=== PATIENT | female | born 1940 | race Caucasian/White ===

== ENCOUNTER 2022-01-02 08:59 | Observation (INO) ==
[2022-01-02] MEDS ORDERED: Iopamidol - 370 500 ML MLS IVP ONE (09:08)
[2022-01-02 09:30] LABS: Hematocrit 44.5 % (35.3-44.9); Hemoglobin 14.5 g/dL (11.5-15.4); Mean Corpuscular HGB Conc 32.6 g/dL (31.6-35.5); Mean Corpuscular Hemoglobin 27.7 pg (28.0-33.3); Mean Corpuscular Volume 85.1 fL (83.0-100.0); Mean Platelet Volume 10.1 fL (9.4-12.4); Platelet Count 277 K/mcL (140-400); Red Blood Count 5.23 M/mcL (3.82-4.97); Red Cell Distribution Width 13.2 % (11.5-14.5); White Blood Count 8.8 K/mcL (4.3-11.1)
[2022-01-02 09:37] LABS: Prothrombin Time 11.6 Seconds (9.4-12.1)
[2022-01-02 09:40] LABS: Activated Partial Thrombo Time 26.2 Seconds (26.0-36.0)
[2022-01-02 09:57] LABS: BUN/Creatinine Ratio 11 (6-26); Blood Urea Nitrogen 17 mg/dL (8-23); Calcium 10.1 mg/dL (8.6-10.3); Carbon Dioxide 28 mEq/L (23-29); Chloride 99 mEq/L (98-107); Ethanol < 10 mg/dL (Less than 10); Glucose 263 mg/dL (70-105); Osmolality,Calculated 291 (280-300); Potassium 3.6 mEq/L (3.5-5.1); Sodium 135 mEq/L (136-145); Troponin I 0.05 ng/mL (< 0.04); eGFR For African Americans 39 (> 60); eGFR For Non-African Americans 32 (> 60)
[2022-01-02] MEDS ORDERED: Naloxone 0.4 MG/ML INJ IVP PRN (11:00)
[2022-01-02] MEDS ORDERED: Aspirin 325 MG TABLET PO ONE (11:00)
[2022-01-02] MEDS ORDERED: Perflutren Lipid Microsphere 1.3 ML in 0.9 % Sodium Chloride 8.7 ML IVP PRN (11:03)
[2022-01-02] MEDS ORDERED: 0.9 % Sodium Chloride 1,000 ML IVC SCH (11:15)
[2022-01-02 11:50] LABS: Chol/HDL Ratio 2.9 (0-4.9); Cholesterol 164 mg/dL (< 200); HDL Cholesterol 57 mg/dL (40-59); LDL Cholesterol,Calculated 68 mg/dL (< 100); Triglycerides 195 mg/dL (< 150)
[2022-01-02 12:30] LABS: Estimated Average Glucose 266 mg/dl; Hemoglobin A1C 10.9 %
[2022-01-02] MEDS ORDERED: D5% in Water 1,000 ML IVC PRN (13:34)
[2022-01-02] MEDS ORDERED: *HR* Dextrose 50 % in Water (Syg) 50 ML SYRINGE IVP PRN (13:34)
[2022-01-02] MEDS ORDERED: Dextrose Gel 15 GM/37.5 ML TUBE PO PRN ×2 (13:34)
[2022-01-02] MEDS ORDERED: Ondansetron ODT 4 MG TAB.RAPDIS PO PRN (13:36)
[2022-01-02] MEDS ORDERED: *HR* OxyCODONE Immed Rel 5 MG TABLET PO PRN (13:36)
[2022-01-02] MEDS: Gabapentin 100 MG CAPSULE PO SCH ×2 (14:33→22:00)
[2022-01-02 15:58] LABS: Bilirubin,Urine Negative (Negative); Blood,Urine Small (Negative); Clarity,Urine Clear (Clear); Color,Urine Yellow (Yellow); Glucose,Urine (UA) >=1000 mg/dL (Normal); Ketones,Urine 10 mg/dL (Negative); Leukocyte Esterase,Urine Negative (Negative); Nitrite,Urine Negative (Negative); Protein,Urine 100 mg/dL (Neg-Trace); RBC,Urine 0-3 per hpf (0-3); Specific Gravity,Urine > 1.030 (1.010-1.025); Squamous Epithelial Cell,Urine Few per hpf (None-Few); Urobilinogen,Urine Normal (Normal); WBC,Urine 0-3 per hpf (0-3)
[2022-01-02 16:04] LABS: Amphetamine Screen,Urine Negative ng/mL (Cutoff=1000); Barbiturate Screen,Urine Negative ng/mL (Cutoff=200); Benzodiazepines Screen,Urine Negative ng/mL (Cutoff=200); Cannabinoid Screen,Urine Negative ng/mL (Cutoff = 50); Cocaine Screen,Urine Negative ng/mL (Cutoff= 300); Opiate Screen,Urine Negative ng/mL (Cutoff=300); Phencyclidine Screen,Urine Negative ng/mL (Cutoff=25)
[2022-01-02] MEDS ORDERED: Nitrofurantoin (BID) 100 MG CAPSULE PO SCH (17:00)
[2022-01-02] MEDS: Insulin LISPRO 300 UNITS/3 ML VIAL SUBQ SCH (17:26)
[2022-01-02] MEDS ORDERED: Insulin DETEMIR 100 UNIT/ML X5UNITS SUBQ SCH (21:00)
[2022-01-02] MEDS: Ticagrelor [Brilinta] 60 MG Tablet PO SCH (22:00)
[2022-01-02] MEDS: Ranolazine 500 MG TAB.ER.12H PO SCH (22:00)
[2022-01-03 03:16] LABS: Basophils % 0.5 %; Immature Granulocytes % 0.4 % (0-4); Monocytes % 8.2 %; Red Cell Distribution Width 13.2 % (11.5-14.5)
[2022-01-03 03:17] LABS: Troponin I 0.03 ng/mL (< 0.04)
[2022-01-03 03:18] LABS: Eosinophils # 0.2 K/mcL (0.0-0.6); Eosinophils % 2.2 %; Hemoglobin 12.9 g/dL (11.5-15.4); Immature Platelets 2.3 % (1.1-6.1); Lymphocytes # 1.3 K/mcL (0.6-4.6); Mean Corpuscular HGB Conc 33.1 g/dL (31.6-35.5); Mean Corpuscular Volume 84.8 fL (83.0-100.0); Mean Platelet Volume 10.3 fL (9.4-12.4); Monocytes # 0.7 K/mcL (0.0-1.3); Platelet Count 228 K/mcL (140-400); Segmented Neutrophils % 72.7 %; White Blood Count 8.2 K/mcL (4.3-11.1)
[2022-01-03 03:37] LABS: Albumin 3.4 g/dL (3.5-5.7); Albumin/Globulin Ratio 1.1 (1.1-2.2); Bilirubin,Total 0.7 mg/dL (0.3-1.0); Calcium 9.6 mg/dL (8.6-10.3); Globulin 3.1 g/dL (2.4-3.5); Magnesium 1.9 mg/dL (1.6-2.6); Phosphorous 2.2 mg/dL (2.7-4.5); Potassium 2.8 mEq/L (3.5-5.1); Total Protein 6.5 g/dL (6.4-8.9)
[2022-01-03 03:58] VITALS: O2SAT 96
[2022-01-03 06:17] LABS: INR 1.1; Prothrombin Time 12.3 Seconds (9.4-12.1)
[2022-01-03 07:56] VITALS: BP 175/79; PULSE 62; TEMP 97.8
[2022-01-03] MEDS: Insulin LISPRO 300 UNITS/3 ML VIAL SUBQ SCH (08:17)
[2022-01-03] MEDS: Ranolazine 500 MG TAB.ER.12H PO SCH (08:40)
[2022-01-03] MEDS: Gabapentin 100 MG CAPSULE PO SCH (08:41)
[2022-01-03] MEDS: Ticagrelor [Brilinta] 60 MG Tablet PO SCH (08:43)
[2022-01-03] MEDS ORDERED: amLODIPine 5 MG TABLET PO SCH (09:00)
[2022-01-03] MEDS ORDERED: Aspirin Enteric Coated 81 MG Tablet PO SCH (09:00)
== END 2022-01-03 14:11 | disposition home health service (06) ==
LOC: 3BNU 08:59 → EMEROOARM 08:59 → 3BNU 13:15
PROVIDERS: ADMIT General Practice; ATTEND General Practice